=== PATIENT | female | born 1950 | race Caucasian/White ===

== ENCOUNTER → 2017-03-15 | Outpatient (CLI) | payer MEDICARE, OTHER ==
[2017-03-15 16:00] LABS: BASO # 0.1 (0.0-0.2); BASO % 0.6 % (0.0-2.0); EOS # 0.3 (0.0-0.7); EOS % 3.7 % (0-4.0); GRAN # 5.8 (1.4-6.5); GRAN % 70.1 % (42.2-75.2); HEMATOCRIT 44.4 % (37.0-47.0); HEMOGLOBIN 14.3 g/dl (12.5-16.0); LYMPH # 1.4 (1.2-3.4); LYMPH % 16.4 % (20.0-51.0); MEAN CELL VOLUME 89 fl (80.0-100.0); MEAN CORPUSCULAR HEMOGLOBIN 29 pg (27.0-31.0); MEAN CORPUSCULAR HGB CONC 32 g/dl (33.0-37.0); MEAN PLATELET VOLUME 9.6 fl (7.4-10.4); MONO # 0.7 (0.1-0.6); PLATELET COUNT 243 K/mm3 (130-400); RED BLOOD COUNT 4.97 M/mm3 (4.10-5.30); REDCELL DISTRIBUTION WIDTH-CV 13.7 % (11.5-14.5)
[2017-03-15 16:06] LABS: ALBUMIN 4.7 gm/dL (3.5-5.0); BILIRUBIN,TOTAL 0.5 mg/dL (0.0-1.0); CALCIUM 9.3 mg/dL (8.4-10.2); CHOLESTEROL RISK RATIO 4.3; CREATININE, serum 0.78 mg/dL (0.52-1.25); POTASSIUM 4.5 mmol/L (3.4-5.0); TOTAL PROTEIN 7.9 gm/dL (6.4-8.2)
[2017-03-15 16:36] LABS: TSH w REFLEX 1.2 uIU/mL (0.465-4.680)
== END ==
LOC: COL.LAB 15:09
PROVIDERS: Family Medicine
DX: Z01.818 Encounter for other preprocedural examination (principal); Z13.220 Encounter for screening for lipoid disorders; Z13.1 Encounter for screening for diabetes mellitus; L65.9 Nonscarring hair loss, unspecified

== ENCOUNTER → 2017-11-15 | Outpatient (CLI) | payer MEDICARE, OTHER | LOC: MC.RAD 10:10 | DX: Z12.31 Encounter for screening mammogram for malignant neoplasm of breast (principal); Z98.890 Other specified postprocedural states ==

== ENCOUNTER → 2018-01-22 | Outpatient (CLI) | payer MEDICARE, OTHER ==
[2018-01-22 20:31] LABS: HEMATOCRIT 44.8 % (37.0-47.0); HEMOGLOBIN 14.5 g/dl (12.5-16.0)
== END ==
LOC: ZCOL.LAB 20:17
PROVIDERS: Family Medicine
DX: Z01.812 Encounter for preprocedural laboratory examination (principal)

== ENCOUNTER 2021-09-02 10:34 | Day surgery (SDC) | payer MEDICARE, OTHER ==
[~2021-09-02] VITALS: Ht 157.5 cm; Wt 67.2 kg
[2021-09-02 11:35] VITALS: BP 134/69; PULSE 72; TEMP 96.6
[2021-09-02 12:20] VITALS: BP 145/63; PULSE 57; TEMP 97.2
--- NOTE | 2021-09-02 12:20 | NUR ---
The patient arrived back to [facility] from the endoscopy suite at this time. The patient ambulated from the cart to the recliner in her room with the stand by assistance of two nurses. Post procedure vital signs were started at this time. Dr. Spears is at the patient's bedside to discuss the findings of the procedure with the patient and her .
[2021-09-02 12:35] VITALS: BP 118/60; PULSE 57
--- NOTE | 2021-09-02 12:35 | NUR ---
The patient has finished her speaking with the doctor and agrees to try some cranberry juice. Vital signs appear stable. remains at bedside. Denies any further needs.
[2021-09-02 12:50] VITALS: BP 134/78; PULSE 58
--- NOTE | 2021-09-02 12:50 | NUR ---
The patient has finished her juice and appeared to tolerate it well. Vital signs remained stable. The patient voices a desire to be discharged home. Discharge instructions were reviewed with the patient and her . They both verbalized understanding and have no questions for the nurse at this time. The patient's IV to her right hand was removed and a pressure dressing was applied to the site. The nurse instructed the patient to get dressed and notify the staff when she is ready to be escorted out. The patient's is going to head down to pull the car up to the patient entrance.
--- NOTE | 2021-09-02 13:05 | NUR ---
The patient was escorted out via wheelchair to a private vehicle by EMELI Parrish. The patient's belongings and discharge paperwork were sent with her. The patient's is present to drive her home.
[2021-09-02 14:30] VITALS: BP 106/57; PULSE 52
== END 2021-09-02 13:05 | disposition home or self-care (01) ==
LOC: SDCO 10:34
DX: Z12.11 Encounter for screening for malignant neoplasm of colon (principal); D12.2 Benign neoplasm of ascending colon; D12.8 Benign neoplasm of rectum
CPT/HCPCS: J2704; J3010; J7120